=== PATIENT | male | born 1980 | race Two or more races ===

== ENCOUNTER 2018-01-23 19:00 | Emergency (ER) | payer MEDICAID ==
[~2018-01-23] VITALS: Ht 170.2 cm; Wt 117.5 kg
[2018-01-23 20:15] VITALS: BP 163/97
== END 2018-01-23 21:37 | disposition home or self-care (01) ==
LOC: ER 19:00
DX: S62.612A Displaced fracture of proximal phalanx of right middle finger, initial encounter for closed fracture (principal); E78.5 Hyperlipidemia, unspecified; Z48.02 Encounter for removal of sutures; V49.9XXA Car occupant (driver) (passenger) injured in unspecified traffic accident, initial encounter; Y93.89 Activity, other specified; Y99.8 Other external cause status; Y92.89 Other specified places as the place of occurrence of the external cause

== ENCOUNTER 2020-05-09 20:49 | Emergency (ER) | payer MEDICAID ==
[~2020-05-09] VITALS: Ht 172.7 cm; Wt 97.1 kg
[2020-05-09] MEDS ORDERED: SODIUM CHLORIDE 0.9% 1,000 ML IV ONE (22:45)
[2020-05-09] MEDS ORDERED: THIAMINE INJ 100 MG in SODIUM CHLORIDE 0.9% 1,000 ML IV ONE (22:45)
[2020-05-10] MEDS ORDERED: LIDOCAINE W/ EPINEPHRINE 1% 20ML VIAL ONE (00:31)
[2020-05-10 02:03] LABS: Albumin 4.1 g/dL (3.4-5.0); BUN/Creatinine Ratio 13.1; Bilirubin, Total 1.1 mg/dL (0.2-1.0); Calcium 8.5 mg/dL (8.5-10.1); Potassium 4.6 mmol/L (3.5-5.1)
[2020-05-10 02:04] LABS: Basophils # (auto) 0.1 10 ^3/uL (0-0.2); Basophils % (auto) 0.8 % (0.0-2.0); Eosinophils # (auto) 0 10 ^3/uL (0-0.8); Eosinophils % (auto) 0.7 % (0.0-7.0); Hematocrit 50.1 % (41.0-53.0); Lymphocytes # (auto) 2.1 10 ^3/uL (0.4-5.4); Lymphocytes % (auto) 32.9 % (10.0-50.0); Mean Corpuscular Hemoglobin 30.6 pg (28.0-32.0); Mean Corpuscular Volume 89.9 fL (80.0-100.0); Monocytes # (auto) 0.5 10 ^3/uL (0-1.3); Monocytes % (auto) 8.4 % (0.0-12.0); Neutrophils # (auto) 3.6 10 ^3/uL (1.6-8.6); Neutrophils % (auto) 57.2 % (37.0-80.0); Nucleated Red Blood Cells % 0.1 %; Platelet Count (auto) 229 10^3/uL (140-450); Red Blood Cells 5.57 10^6/uL (4.5-5.90); Red Cell Distribution Width 13.5 % (11.8-14.3); White Blood Cell 6.3 10^3/uL (4.4-10.8)
[2020-05-10 02:40] LABS: INR 1.17 (0.9-1.15); Partial Thromboplastin Time 28.2 sec (23.0-31.2)
[2020-05-10 04:33] VITALS: BP 113/78
[2020-05-10] MEDS ORDERED: LORazepam 0.5 MG TAB PO ONE (05:00)
== END 2020-05-10 04:45 | disposition home or self-care (01) ==
LOC: EDBD 20:49 → ER 20:51
DX: F10.20 Alcohol dependence, uncomplicated (principal)
CPT/HCPCS: 36415; 80053; 80320; 85025; 85610; 85730; 99283; J3411; J7030